=== PATIENT | female | born 1960 | race Caucasian/White ===

== ENCOUNTER 2019-04-25 13:18 | Emergency (ER) | payer OTHER, SELFPAY ==
[2019-04-25 13:28] VITALS: BP 193/85; PULSE 66; RESP 22; TEMP 36.8; O2SAT 100
[2019-04-25 13:53] LABS: Add Manual Diff / Slide Review NO; Basophils Absolute Auto 0 /uL (0-100); Basophils Percent Auto 0.5 % (0-2); Eosinophils Absolute Auto 400 /uL (0-450); Eosinophils Percent Auto 5.5 % (2-4); Hematocrit 44.5 % (36-46); Hemoglobin 15.2 g/dL (12.0-16.0); Lymphocytes Absolute Auto 2800 /uL (1100-4500); Lymphocytes Percent Auto 38.2 % (25-40); Mean Corpuscular HGB Conc 34.3 % (30-36); Mean Corpuscular Hemoglobin 30.2 PG (26-34); Mean Corpuscular Volume 88.3 fL (80-100); Monocytes Absolute Auto 400 /uL (0-900); Monocytes Percent Auto 4.9 % (3-14); Neutrophils Absolute Auto 3700 /uL (1500-7000); Neutrophils Percent Auto 50.9 % (50-75); Platelet Count 275 X10^3/uL (150-400); Red Blood Cell Count 5.04 X10^6/uL (4.0-5.2); White Blood Cell Count 7.2 X10^3/uL (4.5-11.0)
--- NOTE | 2019-04-25 13:57 | DI.CT.S_ITS ---
PROCEDURE: CT HEAD/BRAIN WO CON INDICATIONS: sudden onset of dizzyness. TECHNIQUE: Noncontrast 4.5 mm thick angled axial sections acquired from the foramen magnum to the vertex, with coronal and sagittal reformats. For radiation dose reduction, the following was used: automated exposure control, adjustment of mA and/or kV according to patient size. COMPARISON: None. FINDINGS: Image quality: Excellent. CSF spaces: Basal cisterns are patent. No extra-axial fluid collections. Ventricles are normal in size and shape. Brain: No midline shift. No intracranial masses or hemorrhage. Olea-white matter interface is normal. Skull and face: Calvarium and visualized facial bones are intact, without suspicious lesions. Sinuses: Visualized sinuses and mastoids are clear. IMPRESSION: No acute intracranial disease process. Dictated by: Carlene Smith MD, PhD on 04/25/2019 at 14:55 Approved by: Carlene Smith MD, PhD on 04/25/2019 at 14:56
[2019-04-25 14:00] LABS: Prothrombin Time 11.3 SECONDS (10.1-12.7)
[2019-04-25 14:02] LABS: PTT Partial Thromboplastin Tim 33 SECONDS (26.4-36.2)
[2019-04-25 14:05] LABS: Alanine Aminotransferase 22 IU/L (<35); Albumin 4.5 g/dL (3.5-5.0); Albumin Globulin Ratio 1.6 (1.0-2.8); Alkaline Phosphatase 80 U/L (38-126); Aspartate Aminotransferase 29 IU/L (14-36); BUN Creatinine Ratio 22.5 (6-22); Bilirubin Total 0.6 mg/dL (0.2-1.3); Blood Urea Nitrogen 18 mg/dL (7-17); Calcium 9.4 mg/dL (8.4-10.2); Carbon Dioxide 31 mmol/L (22-32); Chloride 104 mmol/L (98-107); Creatine Kinase 58 U/L (30-135); Estimated Glomerular Filt Rate > 60.0 mL/min (>60); Globulin 2.8 g/dL (1.7-4.1); Glucose 111 mg/dL (70-100); HEMOLYSIS < 15 (0-50); Magnesium 2.2 mg/dL (1.6-2.3); Sodium 142 mmol/L (137-145); Total Protein 7.3 g/dL (6.3-8.2)
[2019-04-25] MEDS: MECLIZINE HCL 12.5 MG TABLET 50 MG PO (14:11)
[2019-04-25] MEDS: ONDANSETRON 4 MG ODT SL (14:11)
[2019-04-25 14:13] VITALS: BP 177/91; PULSE 66; RESP 18; O2SAT 98
[2019-04-25 14:16] LABS: Troponin I < 0.012 ng/mL (0.01-0.034)
--- NOTE | 2019-04-25 14:16 | ED_ITS ---
HPI - Dizziness <KG Vicente - Last Filed: 04/25/19 18:34> General Chief Complaint: Dizziness Stated Complaint: Yoly Dizzy For 4 Days Time Seen by Provider: 04/25/19 13:33 Source: patient Mode of arrival: Ambulatory Limitations: no limitations History of Present Illness HPI Narrative: The patient is a 58-year-old female nonsmoker with history of hypertension who presents with a chief complaint of dizziness ongoing since . She states that she initially felt dizzy only when moving like sitting up or standing returning her head, but now she feels dizzy all the time given the fact rest. She states that when she moves she feels like the world is spinning around her. She endorses an episode of this about 4 years ago. She complains of nausea, slight vomiting. Denies any chest pain shortness of breath, weakness etc. She has not taken anything to feel better. She states that today she does feels ?very off? and that she is worried as her father has a history of vascular disease. She endorses a family history of heart attack and stroke, and is concerned about stroke. She denies any weakness, numbness etc. Related Data Home Medications Medication Instructions Recorded Confirmed No Known Home Medications 04/25/19 04/25/19 Allergies Allergy/AdvReac Type Severity Reaction Status Date / Time No Known Drug Allergies Allergy Verified 04/25/19 13:30 Review of Systems <[facility] - Last Filed: 04/25/19 18:34> Review of Systems Narrative: GENERAL: Denies chills, fatigue, malaise, fever, sweats. HEENT: Denies sinus pain, ear pain, sore throat, difficulty swallowing, dizziness. RESPIRATORY: Denies dyspnea, cough, wheezing, hemoptysis, sputum. CARDIOVASCULAR: Denies chest pain, palpitations, orthopnea, edema, GASTROINTESTINAL: Denies nausea, vomiting, abdominal pain, diarrhea, constipation, melena. : Denies dysuria, frequency, incontinence, hematuria, urinary retention. MUSCULOSKELETAL: denies weakness, joint pain, or bony pain SKIN: Denies rash, skin lesions, or other NEUROLOGIC: See HPI PSYCHIATRIC: No concerning psychosocial issues. 12 point review of systems is negative except for those stated above Patient History <KG Vicente - Last Filed: 04/25/19 18:34> Medical History Healthy adult (Acute) Social History Smoking Status: Never smoker alcohol intake frequency: 0-2 drinks per day Substance Use Type: does not use Exam <CHINTAN Vicente - Last Filed: 04/25/19 18:34> Narrative Exam Narrative: GENERAL: This is a well-nourished, well-developed patient, in mild distress. HEAD: Atraumatic. Normocephalic. No temporal or scalp tenderness. EYES: Pupils equal round and reactive. Extraocular motions intact. No scleral icterus. No injection or drainage. ENT: Nose without bleeding, purulent drainage or septal hematoma. Throat without erythema, tonsillar hypertrophy or exudate. Uvula midline. Airway patent. NECK: Trachea midline. No JVD or lymphadenopathy. Supple, nontender, no meningeal signs. CARDIOVASCULAR: Regular rate and rhythm without murmurs, gallops, or rubs. RESPIRATORY: Clear to auscultation. Breath sounds equal bilaterally. No wheezes, rales, or rhonchi. GASTROINTESTINAL: Abdomen soft, non-tender, nondistended. No hepato- splenomegaly, or palpable masses. No guarding. EXTREMITIES: No clubbing, cyanosis, or edema. No joint tenderness, effusion, or edema noted. BACK: Nontender without deformity or crepitance. No flank tenderness. NEURO: AOx3. Strength is equal upper and lower extremities bilaterally. No gross cranial nerve deficit SKIN: No rash or erythema. Initial Vital Signs Initial Vital Signs: Vital Signs Temperature 98.2 F 04/25/19 13:28 Pulse Rate 66 04/25/19 13:28 Respiratory Rate 22 04/25/19 13:28 Blood Pressure 193/85 H 04/25/19 13:28 Pulse Oximetry 100 04/25/19 13:28 <Kelly Lopez MD - Last Filed: 04/25/19 19:31> Initial Vital Signs Initial Vital Signs: Vital Signs Temperature 98.2 F 04/25/19 13:28 Pulse Rate 66 04/25/19 13:28 Respiratory Rate 22 04/25/19 13:28 Blood Pressure 193/85 H 04/25/19 13:28 Pulse Oximetry 100 04/25/19 13:28 Scores <CHINTAN Vicente - Last Filed: 04/25/19 18:34> GCS Boby coma scale eye opening: Spontaneous Boby coma scale verbal response: Orientated [place] coma scale motor response: Obey commands [place] coma scale total score: 15 NIH Stroke Scale Level of Conciousness: Alert, keenly responsive Ask month/age: Answers both questions correctly. Open/close eyes, close hand: Performs both tasks correctly Best gaze horizontal: Normal Facial palsy: Normal symetrical movement Left arm drift: No drift for full 10 sec Right arm drift: No drift for full 10 sec Left leg drift: No drift for full 10 sec Right leg drift: No drift for full 10 sec Limb ataxia: Absent Sensory on face/arms/legs: Normal, no sensory loss Best language: No aphasia, normal Dysarthria: Normal Extinction or inattention: No abnormality Course <CHINTAN Vicente - Last Filed: 04/25/19 18:34> Orders Ordered: ED Orders 04/25/19 13:32 EKG-12 Lead Stat 04/25/19 13:45 Complete Blood Count AUTO DIFF Stat Comprehensive Metabolic Panel Stat Magnesium Stat PTT [Partial Thromboplastin Time] Stat Prothrombin Time INR Stat Troponin & CK Cardiac Panel Stat 04/25/19 13:57 CT head/brain wo con Stat 04/25/19 15:35 Consult to Physical Therapy Evaluate & Treat Discontinued Medications Ketorolac Tromethamine (Toradol) 60 mg IM NOW ONE Stop: 04/25/19 15:24 Last Admin: 04/25/19 15:27 Dose: Not Given Documented by: WILMER Ketorolac Tromethamine (Toradol) 10 mg PO NOW ONE Stop: 04/25/19 15:28 Last Admin: 04/25/19 15:30 Dose: 10 mg Documented by: WILMER Meclizine HCl (Antivert) 50 mg PO NOW ONE Stop: 04/25/19 13:59 Last Admin: 04/25/19 14:11 Dose: 50 mg Documented by: WILMER Ondansetron HCl (Zofran Odt) 4 mg SL NOW ONE Stop: 04/25/19 13:59 Last Admin: 04/25/19 14:11 Dose: 4 mg Documented by: KSCHERE Vital Signs Vital signs: Vital Signs - 8 hr 04/25/19 13:28 04/25/19 14:13 04/25/19 14:38 Temperature 98.2 F Pulse Rate 66 66 60 Respiratory Rate 22 18 18 Blood Pressure 193/85 H Blood Pressure [Left Arm] 177/91 H 170/77 H Pulse Oximetry 100 98 04/25/19 15:12 04/25/19 16:17 Temperature Pulse Rate 60 61 Respiratory Rate 18 12 Blood Pressure Blood Pressure [Left Arm] 180/94 H 170/89 H Pulse Oximetry 98 98 <Kelly Lopez MD - Last Filed: 04/25/19 19:31> Orders Ordered: ED Orders 04/25/19 13:32 EKG-12 Lead Stat 04/25/19 13:45 Complete Blood Count AUTO DIFF Stat Comprehensive Metabolic Panel Stat Magnesium Stat PTT [Partial Thromboplastin Time] Stat Prothrombin Time INR Stat Troponin & CK Cardiac Panel Stat 04/25/19 13:57 CT head/brain wo con Stat 04/25/19 15:35 Consult to Physical Therapy Evaluate & Treat Discontinued Medications Ketorolac Tromethamine (Toradol) 60 mg IM NOW ONE Stop: 04/25/19 15:24 Last Admin: 04/25/19 15:27 Dose: Not Given Documented by: WILMER Ketorolac Tromethamine (Toradol) 10 mg PO NOW ONE Stop: 04/25/19 15:28 Last Admin: 04/25/19 15:30 Dose: 10 mg Documented by: WILMER Meclizine HCl (Antivert) 50 mg PO NOW ONE Stop: 04/25/19 13:59 Last Admin: 04/25/19 14:11 Dose: 50 mg Documented by: WILMER Ondansetron HCl (Zofran Odt) 4 mg SL NOW ONE Stop: 04/25/19 13:59 Last Admin: 04/25/19 14:11 Dose: 4 mg Documented by: WILMER Vital Signs Vital signs: Vital Signs - 8 hr 04/25/19 13:28 04/25/19 14:13 04/25/19 14:38 Temperature 98.2 F Pulse Rate 66 66 60 Respiratory Rate 22 18 18 Blood Pressure 193/85 H Blood Pressure [Left Arm] 177/91 H 170/77 H Pulse Oximetry 100 98 04/25/19 15:12 04/25/19 16:17 Temperature Pulse Rate 60 61 Respiratory Rate 18 12 Blood Pressure Blood Pressure [Left Arm] 180/94 H 170/89 H Pulse Oximetry 98 98 MDM - Dizziness <MOISES Vicente- - Last Filed: 04/25/19 18:34> Lab Data Result diagrams: 04/25/19 13:45 04/25/19 13:45 Labs: Lab Results 04/25/19 04/25/19 04/25/19 Range/Units 13:45 13:45 13:45 WBC 7.2 (4.5-11.0) X10^3/uL RBC 5.04 (4.0-5.2) X10^6/uL Hgb 15.2 (12.0-16.0) g/dL Hct 44.5 (36-46) % MCV 88.3 (80-100) fL MCH 30.2 (26-34) PG MCHC 34.3 (30-36) % RDW 13.0 (11.6-14.8) % Plt Count 275 (150-400) X10^3/uL Neut % (Auto) 50.9 (50-75) % Lymph % (Auto) 38.2 (25-40) % [place] % (Auto) 4.9 (3-14) % Eos % (Auto) 5.5 H (2-4) % Baso % (Auto) 0.5 (0-2) % Neut # (Auto) 3700 (5879-1821) /uL Lymph # (Auto) 2800 (3775-7338) /uL [place] # (Auto) 400 (0-900) /uL Eos # (Auto) 400 (0-450) /uL Baso # (Auto) 0 (0-100) /uL PT 11.3 (10.1-12.7) SECONDS INR 1.0 (0.9-1.3) APTT 33 (26.4-36.2) SECONDS Sodium 142 (137-145) mmol/L Potassium 4.0 (3.4-5.1) mmol/L Chloride 104 (98-107) mmol/L Carbon Dioxide 31 (22-32) mmol/L BUN 18 H (7-17) mg/dL Creatinine 0.80 (0.52-1.04) mg/dL Estimated GFR > 60.0 (>60) mL/min BUN/Creatinine Ratio 22.5 H (6-22) Glucose 111 H (70-100) mg/dL Calcium 9.4 (8.4-10.2) mg/dL Magnesium 2.2 (1.6-2.3) mg/dL Total Bilirubin 0.6 (0.2-1.3) mg/dL AST 29 (14-36) IU/L ALT 22 (<35) IU/L Alkaline Phosphatase 80 (38-126) U/L Total Creatine Kinase 58 (30-135) U/L CK-MB (CK-2) TNP CK-MB (CK-2) Rel Index TNP Troponin I < 0.012 (0.01-0.034) ng/mL Total Protein 7.3 (6.3-8.2) g/dL Albumin 4.5 (3.5-5.0) g/dL Globulin 2.8 (1.7-4.1) g/dL Albumin/Globulin Ratio 1.6 (1.0-2.8) Imaging Data CT scan - head: Radiologist's impression: [place] [address] CT Scan Report Signed Patient: Dorita Stevens LMR#: [id number] : 2Acct:[id number] Age/Sex: 58 / FDate of Service: 04/25/19 Loc: ED Accession Number: [id number] Procedure: CT head/brain wo con Ordering Provider: Rosanna Stokes [facility] PROCEDURE: CT HEAD/BRAIN WO CON INDICATIONS: sudden onset of dizzyness. TECHNIQUE: Noncontrast 4.5 mm thick angled axial sections acquired from the foramen magnum to the vertex, with coronal and sagittal reformats. For radiation dose reduction, the following was used: automated exposure control, adjustment of mA and/or kV according to patient size. COMPARISON: None. FINDINGS: Image quality: Excellent. CSF spaces: Basal cisterns are patent. No extra-axial fluid collections. Ventricles are normal in size and shape. Brain: No midline shift. No intracranial masses or hemorrhage. Olea-white matter interface is normal. Skull and face: Calvarium and visualized facial bones are intact, without suspicious lesions. Sinuses: Visualized sinuses and mastoids are clear. IMPRESSION: No acute intracranial disease process. Dictated by: Carlene Smith MD, PhD on 04/25/2019 at 14:55 Approved by: Carlene Smith MD, PhD on 04/25/2019 at 14:56 ECG Data Interpretation: SINUS RHYTHM VENTRICULAR RATE 60. NO ST ELEVATION OR DEPRESSION NOTED. NO ECTOPY NOTED. P.R. INTERVAL 172. QRS DURATION [address] Lopez MDM Narrative Medical decision making narrative: The patient is a 58-year-old female with history of hypertension who presents with a chief complaint of dizziness. Troponin was 10 and EKG was taken help rule out cardiac etiology which came back negative. Given the patient's history of hypertension and family history of cardiac disease, stroke etc we did obtain a CT to help rule out any acute neurological findings. This came back negative. The patient's history was consistent with benign vertigo. She was seen by Physical therapy in the emergency department, was able to perform Gris's maneuvers the patient felt much improved. I discussed at length follow up with primary care provider in the next few days, especially given her consistently high blood pressures in the emergency department. I discussed at length coming back to the emergency department for any acute concerns such as chest pain, shortness of breath, concern of heart attack or stroke. Patient states understanding of return precautions as well as follow-up care and has no questions or concerns upon discharge. <Kelly Lopez MD - Last Filed: 04/25/19 19:31> Lab Data Labs: Lab Results 04/25/19 04/25/19 04/25/19 Range/Units 13:45 13:45 13:45 WBC 7.2 (4.5-11.0) X10^3/uL RBC 5.04 (4.0-5.2) X10^6/uL Hgb 15.2 (12.0-16.0) g/dL Hct 44.5 (36-46) % MCV 88.3 (80-100) fL MCH 30.2 (26-34) PG MCHC 34.3 (30-36) % RDW 13.0 (11.6-14.8) % Plt Count 275 (150-400) X10^3/uL Neut % (Auto) 50.9 (50-75) % Lymph % (Auto) 38.2 (25-40) % [place] % (Auto) 4.9 (3-14) % Eos % (Auto) 5.5 H (2-4) % Baso % (Auto) 0.5 (0-2) % Neut # (Auto) 3700 (5308-9144) /uL Lymph # (Auto) 2800 (0349-1169) /uL [place] # (Auto) 400 (0-900) /uL Eos # (Auto) 400 (0-450) /uL Baso # (Auto) 0 (0-100) /uL PT 11.3 (10.1-12.7) SECONDS INR 1.0 (0.9-1.3) APTT 33 (26.4-36.2) SECONDS Sodium 142 (137-145) mmol/L Potassium 4.0 (3.4-5.1) mmol/L Chloride 104 (98-107) mmol/L Carbon Dioxide 31 (22-32) mmol/L BUN 18 H (7-17) mg/dL Creatinine 0.80 (0.52-1.04) mg/dL Estimated GFR > 60.0 (>60) mL/min BUN/Creatinine Ratio 22.5 H (6-22) Glucose 111 H (70-100) mg/dL Calcium 9.4 (8.4-10.2) mg/dL Magnesium 2.2 (1.6-2.3) mg/dL Total Bilirubin 0.6 (0.2-1.3) mg/dL AST 29 (14-36) IU/L ALT 22 (<35) IU/L Alkaline Phosphatase 80 (38-126) U/L Total Creatine Kinase 58 (30-135) U/L CK-MB (CK-2) TNP CK-MB (CK-2) Rel Index TNP Troponin I < 0.012 (0.01-0.034) ng/mL Total Protein 7.3 (6.3-8.2) g/dL Albumin 4.5 (3.5-5.0) g/dL Globulin 2.8 (1.7-4.1) g/dL Albumin/Globulin Ratio 1.6 (1.0-2.8) Discharge Plan Departure Patient Disposition: Home Clinical Impression: Benign paroxysmal positional vertigo Qualifiers: Laterality: unspecified laterality Qualified Code(s): H81.10 - Benign paroxysmal vertigo, unspecified ear Discharge Date/Time: 04/25/19 16:54 Instructions: DI for Vertigo Activity Restrictions/Additional Instructions: Please follow up with primary care provider in the next few days. Please come back to the emergency department for any acute concerns such as chest pain, concern of heart attack or stroke. I encourage you to follow up with her PCP regarding her blood pressure as well. Prescriptions: No Action No Known Home Medications RF: 0 Referrals: Hanna Ontiveros DO [Primary Care Provider] -
[2019-04-25 14:38] VITALS: BP 170/77; PULSE 60; RESP 18
[2019-04-25 15:12] VITALS: BP 180/94; PULSE 60; RESP 18; O2SAT 98
[2019-04-25] MEDS: KETOROLAC 10 MG TABLET PO (15:30)
[2019-04-25 16:17] VITALS: BP 170/89; PULSE 61; RESP 12; O2SAT 98
--- NOTE | 2019-04-25 16:59 | PT.IIE ---
Medical History (Last Reviewed 04/25/19 @ 14:18 by oRsanna Stokes [facility]) Healthy adult (Acute) Physical Therapy Inpatient Evaluation/Re-Eval M2 PT-IP Current Condition Start: 04/25/19 16:50 Freq: Status: Discharge Protocol: Document 04/25/19 16:00 MB (Rec: 04/25/19 16:58 MB [id number]) Physical Therapy Current Condition Current Condition Evaluation Date 04/25/19 Treatment Diagnosis BPPV Onset Date 4 days ago M3 PT-IP Subjective Start: 04/25/19 16:50 Freq: Status: Discharge Protocol: Document 04/25/19 16:00 MB (Rec: 04/25/19 16:58 MB [id number]) Subjective Physical Therapy Visit Type Type Initial Evaluation Visit Start Time 16:00 Visit Stop Time 16:42 Total Visit Minutes 42 Notes 10 minutes treatment BPPV, also educated pt and provided handouts and d/c recommendations Physical Therapy Visit Comments Patient Comments Pt reports onset of dizziness four days ago when she went down to orange picker something and then had spinning-type dizziness upon standing upright. She denies headache, neck pain, weakness, falls, pain. Therapy Pain Assessment Pain Present Pain Present Denied Pain M5 PT-IP Objective Assessments Start: 04/25/19 16:50 Freq: Status: Discharge Protocol: Document 04/25/19 16:00 MB (Rec: 04/25/19 16:58 MB [id number]) Orientation Orientation/Cognition Level of Alertness Alert Orientation Name,Age,Birthday,Month,Date, Year,Day of Week,Place, Situation Language Function Ability No Deficits Noted Memory Description No Deficits Noted Gross Range of Motion Upper Extremity ROM Assessment Within Functional Limits Impairments Cervical ROM grossly normal and mild c/o dizziness with extension before treated for BPPV and then none after treatment. Lower Extremity ROM Assessment Within Functional Limits Strength Upper Extremity Strength Assessment Within Functional Limits Lower Extremity Strength Assessment Within Functional Limits Coordination Assessment Gross Coordination Gross Coordination WNL Assessment Finger to Nose Test Normal Performance Pronation/Supination Test Normal Performance Sensation Assessment Sensation Gross Sensation WNL Muscle Tone Muscle Tone WNL Yes M6 PT-IP Treatment Start: 04/25/19 16:50 Freq: Status: Discharge Protocol: Document 04/25/19 16:00 MB (Rec: 04/25/19 16:58 MB [id number]) Physical Therapy Treatment Other Treatments Other Treatment Performed Education: what is BPPV, increase non-caffeinated fluid intake, cervical support at night Treated for left posterior canalithiasis, resolved after treatment M7 PT-IP Assessment and Plan Start: 04/25/19 16:50 Freq: Status: Discharge Protocol: Document 04/25/19 16:00 MB (Rec: 04/25/19 16:58 MB [id number]) PT Summary Assessment and Plan Summary Assessment Summary Pt is a 58 y/o female presenting with acute dizziness and found to have left posterior canalithiasis BPPV. Oculomotor and coordination testing were normal, as well as strength and she walks with I without ataxia. Pt treated with canalith repositioning maneuever and BPPV resolved after treatment. She has no further PT needs and will follow-up with her PCP. D/c PT . Frequency of Treatment Frequency Of Treatment Discharge Discharge Recommendations PT Discharge Recommendations Home Other Discharge Recommendations OPPT if dizziness recurs
== END 2019-04-25 16:54 | disposition home or self-care (01) ==
PROVIDERS: Emergency Provider Nurse Practitioner Family; PCP Family Medicine
DX: H81.10 Benign paroxysmal vertigo, unspecified ear (principal); I10 Essential (primary) hypertension; R07.9 Chest pain, unspecified
CPT/HCPCS: 36415; 70450; 80053; 82550; 83735; 84484; 85025; 85610; 85730; 93005; 95992; 97162; 99283; 99285

== ENCOUNTER → 2021-02-26 17:29 | Outpatient (CLI) | payer OTHER, SELFPAY ==
--- NOTE | 2021-02-26 | DI.MRI.S_ITS ---
PROCEDURE: MRFOOT LT WO CON INDICATIONS: Pain in unspecified foot TECHNIQUE: Noncontrast sagittal T1 spin echo and T2 fast spin echo with fat saturation, long-axis T1 spin echo and T2 fast spin echo with fat saturation, short-axis T1 spin echo and T2 fast spin echo with fat saturation through the forefoot. COMPARISON: None. FINDINGS: Image quality: Excellent. Bones and joints: No metatarsal stress fractures. No fracture or dislocation. No gross bony erosive changes. Mild 1st MTP joint osteoarthritic changes are seen. Mild osteoarthritic changes are also noted involving 2nd and 3rd TMT joints with joint space narrowing, subchondral sclerosis and dorsal marginal osteophyte formation. Osteoarthritic changes also noted involving articulation between 1st metatarsal head and sesamoids.. Os navicularis is seen . 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 Soft tissues: The visualized plantar foot muscles demonstrate normal signal and bulk. Visualized flexor and extensor tendons appear intact, without tenosynovitis. The distal insertions of the peroneus brevis and longus tendons appear intact. The principal Lisfranc ligament appears intact. No soft tissue ganglion cysts or bursal fluid collections. Sagittal images demonstrate no evidence for plantar plate tears. IMPRESSION: 1. Mild osteoarthritic changes are noted in great toe as well as 2nd and 3rd TMT joints as above. No fracture or dislocation. No metatarsal stress fracture. 2. Forefoot tendons and ligaments are grossly intact. 3. Os navicularis is seen . 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 Dictated by: Finesse Dumont M.D. on 02/27/2021 at 8:15 Approved by: Finesse Dumont M.D. on 02/27/2021 at 8:55
== END ==
PROVIDERS: PCP Family Medicine; Referring Provider Family Medicine; Visit Provider Family Medicine
DX: M79.673 Pain in unspecified foot (principal); M84.475A Pathological fracture, left foot, initial encounter for fracture; M19.072 Primary osteoarthritis, left ankle and foot
CPT/HCPCS: 73718

== ENCOUNTER 2022-06-15 11:12 | Emergency (ER) | payer OTHER, SELFPAY ==
[2022-06-15] VITALS (7 sets, daily range): BP systolic 132–193; BP diastolic 63–87; PULSE 72–91; RESP 18; TEMP 36.4; O2SAT 94–99; BMI 33.6
[2022-06-15 12:05] LABS: Amorphous Sediment Urine 1+; Bacteria Urine None Seen; RBC Urine 10-30/HPF (0-5/HPF); Squamous Epithelial Cell Urine 0-1 /HPF (0-5/HPF); WBC Urine None Seen (0-5/HPF)
[2022-06-15 12:06] LABS: Culture Indicated Urine Cult Not Indicated; Mucus Urine 2+ (Negative)
--- NOTE | 2022-06-15 13:11 | DI.CT.S_ITS ---
PROCEDURE: CT KIDNEY URETER BLADDER (KUB) INDICATIONS: flank pain, hematuria TECHNIQUE: Axial sections were acquired from the lung bases to the pubic symphysis. Coronal and sagittal reformats were performed. For radiation dose reduction, the following was used: automated exposure control, adjustment of mA and/or kV according to patient size. COMPARISON: None. FINDINGS: Lower thorax: The lung bases are clear. Heart size normal. No hiatal hernia. Liver: Normal in size and attenuation. No contour deformity present. Biliary system: Cholecystectomy. No intra or extrahepatic bile duct dilation. Pancreas: Unremarkable without mass or inflammation evident. Spleen: Normal in size and density. Adrenals: Normal morphology and density. Reproductive system: Unremarkable as visualized. Urinary system: 5 x 3 mm calculus in the distal right ureter is 1 cm from the ureterovesical junction results in moderate right hydronephrosis and hydroureter with perinephric stranding. No left hydronephrosis or calculi. Gastrointestinal system: The bowel is unremarkable without evidence of bowel obstruction or inflammation. The stomach appears unremarkable. Appendix: No findings to suggest acute appendicitis. Peritoneal spaces: No mesenteric or retroperitoneal adenopathy. No free air. No free fluid. Vasculature: The IVC, aorta and iliac vasculature are unremarkable. Abdominal wall: Abdominal wall intact without evidence of ventral or inguinal hernias. Musculoskeletal: Normal bone mineralization. No acute fractures. IMPRESSION: 1. Moderate right hydronephrosis results from 5 x 3 mm calculus distal right ureter Approved by: Pino Ramos M.D. on 06/15/2022 at 13:04
--- NOTE | 2022-06-15 13:35 | ED_ITS ---
HPI - General Adult General Chief complaint: Abdominal Pain Stated complaint: RT side pain lower quad going into back Time Seen by Provider: 06/15/22 13:11 Source: patient Mode of arrival: Ambulatory History of Present Illness HPI narrative: 61-year-old woman with a history of kidney stones and prior diverticulitis presents with acute onset of sharp right flank pain radiating into the right lower quadrant associated with nausea, vomiting and severe pain. She has had kidney stones in the past some of which have required lithotripsy and is followed by a urologist in [place]. She initially thought this might be constipation and did a Fleet's enema which did produce a bowel movement did not alleviate any of her pain. She has not had fevers, cough, chest pain, palpitations, headaches. Related Data Previous Rx's Medication Instructions Recorded hydrocodone 5 mg-acetaminophen 325 1 tab PO Q6H PRN pain #14 tabs 06/15/22 mg tablet tamsulosin 0.4 mg capsule 0.4 mg PO DAILY #20 caps 06/15/22 Allergies Allergy/AdvReac Type Severity Reaction Status Date / Time No Known Drug Allergies Allergy Verified 04/25/19 13:30 Patient History Medical History (Updated 06/15/22 @ 15:38 by Sandra Rosales MD) Healthy adult Kidney stones Social History Smoking Status: Never smoker Smoking Status: Never smoker alcohol intake frequency: 0-2 drinks per day Substance Use Type: does not use Exam Initial Vital Signs Initial Vital Signs: Vital Signs Temperature 97.6 F 06/15/22 11:53 Pulse Rate 91 H 06/15/22 11:53 Respiratory Rate 18 06/15/22 11:53 Blood Pressure 193/87 H 06/15/22 11:53 Pulse Oximetry 99 06/15/22 11:53 Oxygen Delivery Method 06/15/22 11:53 General: Healthy appearing, in significant distress. Able to give a complete and coherent history. Well-nourished well-developed HEENT: Moist mucous membranes, normal sclera with reactive pupils, Respiratory: Lungs are clear to auscultation, no wheezing no rales no rhonchi. Full and symmetrical air movement Cardiac: Regular rate and rhythm no murmurs no bruits Abdomen: Soft, mild right flank pain no rebound or guarding., Skin: Warm and dry, no rashes Neurologic: Grossly neurologically intact with no obvious asymmetries or abnormalities Extremities: No trauma, well perfused Psych: Cooperative, appropriate insight and affect Course Orders Ordered: ED Orders 06/15/22 11:46 Urine Microscopic Stat 06/15/22 11:57 EKG-12 Lead Stat 06/15/22 13:11 CT kidney ureter bladder (KUB) Stat 06/15/22 13:37 Complete Blood Count AUTO DIFF Stat Comprehensive Metabolic Panel Stat Lipase Stat Hydrocodone Bitart/Acetaminophen (Hydrocodone/Acet 5/325 Tablet) 1 tab PO NOW ONE Stop: 06/15/22 15:26 Ondansetron HCl (Ondansetron 4 Mg/2 Ml Inj) 4 mg IV NOW PRN PRN Reason: Nausea And Vomiting Last Admin: 06/15/22 13:55 Dose: 4 mg Documented By: ROSALIND Ondansetron HCl (Ondansetron 4 Mg Odt) 4 mg PO NOW PRN PRN Reason: Nausea And Vomiting Tamsulosin HCl (Tamsulosin 0.4 Mg Capsule) 0.4 mg PO NOW ONE Stop: 06/15/22 15:26 Discontinued Medications Hydromorphone HCl (Hydromorphone 1 Mg Inj) 1 mg IV NOW ONE Stop: 06/15/22 14:31 Last Admin: 06/15/22 14:40 Dose: 1 mg Documented By: ROSALIND(2) Vital Signs Vital signs: Vital Signs - 8 hr 06/15/22 11:53 06/15/22 14:01 06/15/22 14:39 Temperature 97.6 F Pulse Rate 91 H 77 Respiratory Rate 18 18 Blood Pressure 193/87 H 162/80 H Pulse Oximetry 99 99 94 Oxygen Delivery Method Room Air Medical Decision Making Lab Data Result diagrams: 06/15/22 13:37 06/15/22 13:37 Labs: Lab Results 06/15/22 06/15/22 06/15/22 Range/Units 11:46 13:37 13:37 WBC 12.0 H (4.5-11.0) X10^3/uL RBC 4.87 (4.0-5.2) X10^6/uL Hgb 14.7 (12.0-16.0) g/dL Hct 43.2 (36-46) % MCV 88.7 (80-100) fL MCH 30.2 (26-34) PG MCHC 34.1 (30-36) % RDW 13.2 (11.6-14.8) % Plt Count 287 (150-400) X10^3/uL Neut % (Auto) 87.1 H (50-75) % Lymph % (Auto) 9.0 L (25-40) % [place] % (Auto) 3.3 (3-14) % Eos % (Auto) 0.1 L (2-4) % Baso % (Auto) 0.5 (0-2) % Neut # (Auto) 73481 H (0545-6915) /uL Lymph # (Auto) 1100 (1817-4887) /uL [place] # (Auto) 400 (0-900) /uL Eos # (Auto) 0 (0-450) /uL Baso # (Auto) 100 (0-100) /uL Sodium 139 (137-145) mmol/L Potassium 3.9 (3.4-5.1) mmol/L Chloride 103 (98-107) mmol/L Carbon Dioxide 28 (22-32) mmol/L BUN 16 (7-17) mg/dL Creatinine 0.94 (0.52-1.04) mg/dL Estimated GFR > 60 (>60) mL/min BUN/Creatinine Ratio 17.0 (6-22) Glucose 137 H (80-110) mg/dL Calcium 8.6 (8.4-10.2) mg/dL Total Bilirubin 0.5 (0.2-1.3) mg/dL AST 26 (14-36) IU/L ALT 25 (<35) IU/L Alkaline Phosphatase 71 (38-126) U/L Total Protein 7.6 (6.3-8.2) g/dL Albumin 4.5 (3.5-5.0) g/dL Globulin 3.1 (1.7-4.1) g/dL Albumin/Globulin Ratio 1.5 (1.0-2.8) Lipase 59 (23-300) U/L Urine RBC 10-30/hpf H (0-5/HPF) Urine WBC None seen (0-5/HPF) Ur Squamous Epith Cells 0-1 /hpf (0-5/HPF) Amorphous Sediment 1+ Urine Bacteria None seen (None) Urine Mucus 2+ H (Negative) Ur Culture Indicated? Cult not indicated Urine Dip Bedside Urine Glucose Negative Bedside Urine Bilirubin - Negative Bedside Urine Ketone +/- 5 Urine Specific [place] 1.025 Bedside Urine Occult Blood +++ Bedside Urine pH 6.0 Bedside Urine Protein + 30 Bedside Urine Urobilinogen - Negative Bedside Urine Nitrite - Negative Bedside Urine Leukocytes - Negative Esterase Point of care testing: Urine Dip Bedside Urine Glucose Negative Bedside Urine Bilirubin - Negative Bedside Urine Ketone +/- 5 Urine Specific [place] 1.025 Bedside Urine Occult Blood +++ Bedside Urine pH 6.0 Bedside Urine Protein + 30 Bedside Urine Urobilinogen - Negative Bedside Urine Nitrite - Negative Bedside Urine Leukocytes - Negative Esterase MDM Narrative Medical decision making narrative: MDM CC: When I a.m. onset right-sided flank pain Complicating co-morbidities: Prior kidney stones requiring stenting, nephrolithiasis Corroborating data: Data collected from: patient, Medical records reviewed: No prior medical records are immediately available Differential considered: Kidney stone, pyelonephritis, other ureteral obstruction, diverticulitis, appendicitis, shingles Exam documented above, pertinent findings include: Mild flank pain without rebound or guarding Lab Test results independently reviewed as above. Pertinent findings: Slightly elevated white blood cell count with mild left shift. Chemistries demonstrate no significant electrolyte abnormalities liver studies in that are abnormal or acute renal failure Urine has red blood cells, no white blood cells or bacteria Imaging studies independently reviewed: CT of the abdomen shows moderate right hydronephrosis from a 5 x 3 mm calculus in the distal right ureter Treatments: With fluids, Dilaudid and Toradol pain is almost entirely resolved. Re-evaluations: 330 patient is re-evaluated and is doing much better with pain controlled. Blood pressure is down nicely. Of note she did vomit up her medication secondary to pain this morning. Reviewed with her signs and symptoms and findings CT scan suggesting an obstructing ureteral stone. With urine showing only red cells I do not suspect pyelonephritis or obstructing infection behind the stone. With pain relatively easily controlled I think she is safe for discharge home. She says that she has nausea medication at home. That she prefers no medication but does have a leave and Tylenol at home. In the past Vicodin has worked better than Percocet so will give her a brief prescription for this. We will also refill her prescription of Flomax and will ask her to follow-up with her urologist in [place] if the stone has not passed by tomorrow morning Diagnosis: Right ureterolithiasis Disposition: see below, along with detailed discharge instructions that have been reviewed with patient as well as indications for ED re-evaluation and additional outpatient follow up Discharge Plan Departure Patient Disposition: Home Clinical Impression: Ureterolithiasis Instructions: DI for Kidney Stones Activity Restrictions/Additional Instructions: Thank you for coming in today Your lab work is reassuring and your CT scan shows neither kidney stone this time on the right side. It is only about a cm from dropping into the bladder and will likely pass by itself. It is 0.5 x 0.3 cm in size. I am going to send you home with a prescription for Flomax to use to encourage the stone to pass. Once it is past you can stop using this. At this time I do not think antibiotics are required. I will give you a prescription for Vicodin to help with pain if needed. In the meantime using the Aleve that you have at home 1 in the morning and 1 in the evening should be helpful with overall pain control. To this you can add either Tylenol or Vicodin through the day. If you have not pass the stone by tomorrow morning, please call your urologist office to let them know that you have another stone and need to be seen and evaluated. If you find that you are getting worse or develop any new symptoms, please feel free to return to the emergency department for further evaluation. Prescriptions: New tamsulosin 0.4 mg capsule 0.4 mg PO DAILY Qty: 20 0RF hydrocodone-acetaminophen 5-325 mg tablet 1 tab PO Q6H PRN (Reason: pain) Qty: 14 0RF Referrals: Hanna Ontiveros DO [Primary Care Provider] - Stand Alone Forms: Patient Portal/API
[2022-06-15 13:41] LABS: Add Manual Diff / Slide Review NO; Basophils Absolute Auto 100 /uL (0-100); Basophils Percent Auto 0.5 % (0-2); Eosinophils Absolute Auto 0 /uL (0-450); Eosinophils Percent Auto 0.1 % (2-4); Hematocrit 43.2 % (36-46); Hemoglobin 14.7 g/dL (12.0-16.0); Lymphocytes Absolute Auto 1100 /uL (1100-4500); Mean Corpuscular HGB Conc 34.1 % (30-36); Mean Corpuscular Hemoglobin 30.2 PG (26-34); Mean Corpuscular Volume 88.7 fL (80-100); Monocytes Absolute Auto 400 /uL (0-900); Monocytes Percent Auto 3.3 % (3-14); Neutrophils Absolute Auto 10500 /uL (1500-7000); Neutrophils Percent Auto 87.1 % (50-75); Platelet Count 287 X10^3/uL (150-400); Red Blood Cell Count 4.87 X10^6/uL (4.0-5.2); Red Cell Distribution Width 13.2 % (11.6-14.8)
[2022-06-15 13:52] LABS: Alanine Aminotransferase 25 IU/L (<35); Albumin 4.5 g/dL (3.5-5.0); Albumin Globulin Ratio 1.5 (1.0-2.8); Alkaline Phosphatase 71 U/L (38-126); Aspartate Aminotransferase 26 IU/L (14-36); Bilirubin Total 0.5 mg/dL (0.2-1.3); Blood Urea Nitrogen 16 mg/dL (7-17); Calcium 8.6 mg/dL (8.4-10.2); Carbon Dioxide 28 mmol/L (22-32); Chloride 103 mmol/L (98-107); Estimated Glomerular Filt Rate > 60 mL/min (>60); Globulin 3.1 g/dL (1.7-4.1); Glucose 137 mg/dL (80-110); HEMOLYSIS < 15 (0-50); Lipase 59 U/L (23-300); Potassium 3.9 mmol/L (3.4-5.1); Sodium 139 mmol/L (137-145); Total Protein 7.6 g/dL (6.3-8.2)
[2022-06-15] MEDS: ONDANSETRON 4 MG/2 ML INJ IV (13:55)
[2022-06-15] MEDS: HYDROMORPHONE 1 MG INJ IV (14:40)
[2022-06-15] MEDS: TAMSULOSIN 0.4 MG CAPSULE PO (15:46)
[2022-06-15] MEDS: HYDROCODONE/ACET 5/325 TABLET 1 TAB PO (15:46)
== END 2022-06-15 15:52 | disposition home or self-care (01) ==
PROVIDERS: Emergency Provider Emergency Medicine; PCP Family Medicine
DX: N20.1 Calculus of ureter (principal); R11.2 Nausea with vomiting, unspecified
CPT/HCPCS: 36415; 74176; 80053; 81003; 81015; 83690; 85025; 96374; 99284; J1170; J2405

== ENCOUNTER → 2023-05-19 12:58 | Outpatient (CLI) | payer OTHER, SELFPAY ==
--- NOTE | 2023-05-19 | DI.MRI.S_ITS ---
PROCEDURE: MR CERVICAL SPINE WO CON INDICATIONS: Cervical disc disorder at C5-C6 level TECHNIQUE: Noncontrast sagittal T1 spin echo and T2 fast spin echo, sagittal STIR, foraminal oblique sagittal T2 fast spin echo, and axial gradient echo or T2 fast spin echo through the cervical spine. COMPARISON: None. FINDINGS: Image quality: Excellent. Alignment and Curvature: Straightening of the normal cervical lordosis. Bone Marrow: Marrow demonstrates normal overall signal. Spinal Cord: Visualized spinal cord has normal size and signal. No cerebellar tonsillar herniation. Paraspinous Soft Tissues: No paravertebral masses. Prevertebral soft tissues are normal in thickness. C2-C3: Disc desiccation. No central canal stenosis. Facet and uncovertebral arthropathy. No significant neural foraminal stenosis. C3-C4: Disc desiccation height loss. Posterior disc osteophyte complex. Mild central canal stenosis. Facet and uncovertebral arthropathy. Mild bilateral neural foraminal stenosis. C4-C5: Disc desiccation and posterior disc osteophyte complex abutting the ventral cord. Moderate central canal stenosis. Facet and uncovertebral arthropathy. Moderate bilateral neural foraminal stenosis. C5-C6: Disc desiccation and posterior disc osteophyte complex. Mild central canal stenosis. Facet and uncovertebral arthropathy. Severe right and mild left neural foraminal stenosis. C6-C7: Disc desiccation height loss. Posterior disc osteophyte complex. Mild central canal stenosis. Facet and uncovertebral arthropathy. Severe left and moderate right neural foraminal stenosis. C7-T1: No central canal stenosis. Facet and uncovertebral arthropathy. No neural foraminal stenosis. IMPRESSION: 1. Multilevel degenerative changes of the cervical spine as described above. 2. There is mild multilevel central canal stenosis. Moderate central canal stenosis at C4-C5. 3. Severe neural foraminal stenosis on the right at C5-C6 and left at C6-C7. Multilevel mild and moderate neural foraminal stenosis as above. Dictated by: Ash Garner M.D. on 05/19/2023 at 14:46 Approved by: Ash Garner M.D. on 05/19/2023 at 14:50
== END ==
PROVIDERS: PCP Family Medicine; Referring Provider Family Medicine; Visit Provider Family Medicine
DX: M50.122 Cervical disc disorder at C5-C6 level with radiculopathy (principal); M47.22 Other spondylosis with radiculopathy, cervical region; M48.02 Spinal stenosis, cervical region
CPT/HCPCS: 72141

== ENCOUNTER 2023-10-08 09:36 | Day surgery (SDC) | payer OTHER, SELFPAY ==
[2023-10-08] MEDS: LACTATED RINGERS 1,000 ML 42 ML IV (10:02)
[2023-10-08 10:04] VITALS: BP 180/99; PULSE 97; RESP 20; TEMP 36.7; O2SAT 99
--- NOTE | 2023-10-08 10:04 | P.HP_ITS ---
History of Present Illness History of Present Illness Date Patient Seen: 10/08/23 Time Patient Seen: 10:05 Chief complaint: Colonoscopy Narrative: Dorita is a 63-year-old woman who presents for a screening colonoscopy. She believes her last 1 was 10 or 11 years ago and was normal. She has had at least 2 episodes of diverticulitis in her life but has not been hospitalized for it PFSH Medical History (Updated 10/08/23 @ 10:05 by Stephen Larios MD) Hx of diverticulitis of colon Kidney stones Healthy adult Social History Smoking Status: Never smoker Meds Home Medications and Allergies Home Medications Medication Instructions Recorded Confirmed Type hydrocodone 5 mg-acetaminophen 325 1 tab PO Q6H PRN pain #14 tabs 06/15/22 Rx mg tablet tamsulosin 0.4 mg capsule 0.4 mg PO DAILY #20 caps 06/15/22 Rx sodium,potassium,mag sulfates 17.5 See Rx Instructions PO .COMPLEX 09/03/23 Rx gram-3.13 gram-1.6 gram oral soln #354 mL (Suprep Bowel Prep Kit) propranolol 60 mg capsule,24 60 mg PO DAILY 10/08/23 10/08/23 History hr,extended release triamterene 37.5 1 cap PO DAILY 10/08/23 10/08/23 History mg-hydrochlorothiazide 25 mg capsule Allergies Allergy/AdvReac Type Severity Reaction Status Date / Time No Known Drug Allergies Allergy Verified 10/08/23 09:49 Exam Const General: healthy appearing and No acute distress Assessment & Plan Assessment and plan (1) Colon cancer screening: Status: Acute Plan We reviewed the risks and benefits of colonoscopy for colon cancer screening and she would like to proceed.
[2023-10-08 10:37] VITALS: BP 116/68; PULSE 76; RESP 17; TEMP 36.3; O2SAT 100
[2023-10-08 10:42] VITALS: BP 121/75; PULSE 74; RESP 19; O2SAT 99
--- NOTE | 2023-10-08 10:42 | P.OP.COLON_ITS ---
Operative Date/Time/Diagnoses Date of procedure: 10/08/23 Time of procedure: 10:42 Pre-op diagnosis: Colon cancer screening Post-op diagnosis: same Procedure & Clinicians Study performed: Colonoscopy Same procedure as scheduled: Yes Surgeon: Stephen Larios Procedure Notes Procedure in detail: Surgeon: Stephen Larios MD Anesthesia: Bernie Dave CRNA Procedure: The patient was brought to the endoscopy suite, placed in left lateral decubitus position. The patient was connected to monitoring devices. A time-out was performed. Sedation was administered. Once the patient was adequately sedated, a digital rectal exam was performed and was normal. The scope was then inserted and advanced to the cecum where the appendiceal orifice was identified and photographed. The scope was then slowly withdrawn over greater than 6 minutes. The mucosa was thoroughly inspected. There was some s igmoid diverticulosis. The scope was retroflexed in the rectum. No other abnormalities were seen. The scope was straightened and removed. The patient was awakened and brought to recovery. Scope withdrawal time: 6 minutes Sedation time: 14 minutes EBL: 0 Findings: Sigmoid diverticulosis Post-procedure Recommendations: Colonoscopy in 10 years Disposition: PACU
[2023-10-08 10:47] VITALS: BP 127/74; PULSE 67; RESP 18; TEMP 36.3; O2SAT 99
== END 2023-10-08 11:00 | disposition home or self-care (01) ==
PROVIDERS: PCP Family Medicine; Referring Provider Surgery; Visit Provider Surgery
PROC: 0DJD8ZZ Inspection of Lower Intestinal Tract, Via Natural or Artificial Opening Endoscopic (ICD-10-PCS; CPT 45378; principal; 2023-10-08 10:30)
DX: Z12.11 Encounter for screening for malignant neoplasm of colon (principal); K57.30 Diverticulosis of large intestine without perforation or abscess without bleeding
CPT/HCPCS: 45378; J2704